=== PATIENT | female | born 1955 | race Caucasian/White ===

== ENCOUNTER 2021-09-14 12:47 | Inpatient (IN) | payer OTHER, MEDICARE ==
[2021-09-14 14:54] VITALS: BMI 27.4
[2021-09-14] MEDS ORDERED: diazePAM 5 MG TABLET PO PRN (15:53)
[2021-09-14] MEDS ORDERED: DICYCLOMINE HCL 10 MG CAPSULE PO PRN (15:55)
[2021-09-14] MEDS ORDERED: BISMUTH SUBSALICYLATE 524 MG/30 ML PO PRN (15:55)
[2021-09-14] MEDS ORDERED: MAGNESIUM HYDROX 2400MG/30ML ORAL SUSPENSION 30 ML CUP PO PRN (15:55)
[2021-09-14] MEDS ORDERED: MAG HYDROX/AL HYDROX/SIMETH 30 ML UNIT-DOSE CUP PO PRN (15:55)
[2021-09-14] MEDS ORDERED: IBUPROFEN 600 MG TABLET (FP) PO PRN (15:55)
[2021-09-14] MEDS ORDERED: METHOCARBAMOL 500 MG TABLET PO PRN (15:55)
[2021-09-14] MEDS ORDERED: LOPERAMIDE HCL 2 MG CAPSULE PO PRN (15:55)
[2021-09-14] MEDS ORDERED: MAGNESIUM CITRATE 300 ML BOTTLE PO PRN (15:55)
[2021-09-14] MEDS ORDERED: ONDANSETRON *ODT* 4 MG TABLET SL PRN (15:55)
[2021-09-14] MEDS ORDERED: IBUPROFEN 400 MG TABLET (FP) PO PRN (15:55)
[2021-09-14] MEDS ORDERED: BENZOCAINE/MENTHOL (CHLORASEPTIC ) LOZENGE MM PRN (15:55)
[2021-09-14] MEDS ORDERED: ACETAMINOPHEN 325 MG TABLET (FP) PO PRN ×2 (15:55)
[2021-09-14] MEDS: hydrOXYzine PAMOATE 25 MG CAPSULE (FP) PO SCH ×3 (18:30→22:35)
[2021-09-14] MEDS: diazePAM 5 MG TABLET PO SCH ×2 (18:30→22:34)
[2021-09-14] MEDS: THIAMINE HCL 100 MG TABLET (FP) PO SCH (22:34)
[2021-09-14] MEDS: ROSUVASTATIN CA 20 MG TABLET PO SCH (22:35)
[2021-09-14] MEDS: MELATONIN 5 MG TABLETS PO SCH (22:35)
[2021-09-14] MEDS: FAMOTIDINE 20 MG TABLET PO SCH (22:35)
[2021-09-15] MEDS: hydrOXYzine PAMOATE 25 MG CAPSULE (FP) PO SCH ×5 (05:40→22:21)
[2021-09-15] MEDS: diazePAM 5 MG TABLET PO SCH ×4 (05:40→22:21)
[2021-09-15] MEDS: VERAPAMIL HCL 240 MG E.R. TABLET PO SCH (10:24)
[2021-09-15] MEDS: CITALOPRAM HYDROBROMIDE 20 MG TABLET PO SCH (10:24)
[2021-09-15] MEDS: PRENATAL VITAMINS W/ FOLIC ACID TABLET (FP) PO SCH (10:24)
[2021-09-15] MEDS: FAMOTIDINE 20 MG TABLET PO SCH ×2 (10:25→22:21)
[2021-09-15 11:20] LABS: EPI CELLS >36 /uL (0-25.1); HYALINE CASTS 5 /uL (0-3.1); PH,URINE 6.5 (5.0-8.0); URINE APPEARANCE CLEAR; URINE BACTERIA 32 /uL (0-1359); URINE BILIRUBIN NEGATIVE (NEGATIVE); URINE COLOR YELLOW; URINE GLUCOSE (UA) NEGATIVE (NEGATIVE); URINE KETONE NEGATIVE (NEGATIVE); URINE LEUK ESTERASE 3+ (NEGATIVE); URINE NITRITE NEGATIVE (NEGATIVE); URINE PROTEIN NEGATIVE (NEGATIVE); URINE RBC 4 /uL (0-23.9); URINE UROBILINOGEN 0.2 mg/dL (0.2-1.0); URINE WBC 130 /uL (0-25.8)
[2021-09-15 11:20] LABS: HEMATOCRIT 37.5 % (32.4-45.2); HEMOGLOBIN 12.4 GM/dL (10.7-15.3); MCH 32.3 pg (25.7-33.7); MEAN CELL VOLUME 97.9 fl (80-96); MEAN PLT VOLUME 7.9 fl (7.5-11.1); PLATELET COUNT 260 10^3/uL (134-434); RBC 3.83 M/mm3 (3.60-5.2); RDW 13.2 % (11.6-15.6); WHITE BLOOD COUNT 7.6 K/mm3 (4.0-10.0)
[2021-09-15 12:19] LABS: CALCIUM 9.4 mg/dL (8.5-10.1)
[2021-09-15 12:20] LABS: ALBUMIN 3.6 g/dl (3.4-5.0); BLOOD UREA NITROGEN 9.2 mg/dL (7-18); CREATININE 0.7 mg/dL (0.55-1.3)
[2021-09-15 12:22] LABS: BILIRUBIN,TOTAL 0.6 mg/dL (0.2-1); TOT PROT 6.2 g/dl (6.4-8.2)
[2021-09-15] MEDS: THIAMINE HCL 100 MG TABLET (FP) PO SCH (22:21)
[2021-09-15] MEDS: ROSUVASTATIN CA 20 MG TABLET PO SCH (22:21)
[2021-09-15] MEDS: MELATONIN 5 MG TABLETS PO SCH (22:21)
[2021-09-16] MEDS: diazePAM 5 MG TABLET PO SCH ×3 (05:26→22:01)
[2021-09-16] MEDS: hydrOXYzine PAMOATE 25 MG CAPSULE (FP) PO SCH ×6 (05:26→22:00)
[2021-09-16] MEDS: FAMOTIDINE 20 MG TABLET PO SCH ×2 (10:18→22:00)
[2021-09-16] MEDS: PRENATAL VITAMINS W/ FOLIC ACID TABLET (FP) PO SCH (10:18)
[2021-09-16] MEDS: VERAPAMIL HCL 240 MG E.R. TABLET PO SCH (10:18)
[2021-09-16] MEDS: CITALOPRAM HYDROBROMIDE 20 MG TABLET PO SCH (10:18)
[2021-09-16 12:58] LABS: EPI CELLS 21 /uL (0-25.1); HYALINE CASTS 5 /uL (0-3.1); URINE APPEARANCE CLOUDY; URINE BACTERIA 19 /uL (0-1359); URINE BILIRUBIN NEGATIVE (NEGATIVE); URINE COLOR YELLOW; URINE GLUCOSE (UA) NEGATIVE (NEGATIVE); URINE KETONE NEGATIVE (NEGATIVE); URINE LEUK ESTERASE TRACE (NEGATIVE); URINE NITRITE NEGATIVE (NEGATIVE); URINE PROTEIN NEGATIVE (NEGATIVE); URINE RBC 9 /uL (0-23.9); URINE UROBILINOGEN 0.2 mg/dL (0.2-1.0); URINE WBC 24 /uL (0-25.8)
[2021-09-16] MEDS: THIAMINE HCL 100 MG TABLET (FP) PO SCH (22:00)
[2021-09-16] MEDS: MELATONIN 5 MG TABLETS PO SCH (22:00)
[2021-09-16] MEDS: ROSUVASTATIN CA 20 MG TABLET PO SCH (22:00)
[2021-09-17] MEDS: diazePAM 5 MG TABLET PO SCH ×2 (05:52→18:10)
[2021-09-17] MEDS: hydrOXYzine PAMOATE 25 MG CAPSULE (FP) PO SCH ×5 (05:52→23:21)
[2021-09-17] MEDS: CITALOPRAM HYDROBROMIDE 20 MG TABLET PO SCH (10:15)
[2021-09-17] MEDS: VERAPAMIL HCL 240 MG E.R. TABLET PO SCH (10:15)
[2021-09-17] MEDS: FAMOTIDINE 20 MG TABLET PO SCH ×2 (10:16→22:21)
[2021-09-17] MEDS: PRENATAL VITAMINS W/ FOLIC ACID TABLET (FP) PO SCH (10:16)
[2021-09-17] MEDS: THIAMINE HCL 100 MG TABLET (FP) PO SCH (22:28)
[2021-09-17] MEDS: ROSUVASTATIN CA 20 MG TABLET PO SCH (22:29)
[2021-09-17] MEDS: MELATONIN 5 MG TABLETS PO SCH (22:29)
[2021-09-18] MEDS: hydrOXYzine PAMOATE 25 MG CAPSULE (FP) PO SCH ×2 (05:21→10:01)
[2021-09-18] MEDS ORDERED: diazePAM 5 MG TABLET PO ONE (06:00)
[2021-09-18] MEDS: CITALOPRAM HYDROBROMIDE 20 MG TABLET PO SCH (09:59)
[2021-09-18] MEDS: VERAPAMIL HCL 240 MG E.R. TABLET PO SCH (10:00)
[2021-09-18] MEDS: PRENATAL VITAMINS W/ FOLIC ACID TABLET (FP) PO SCH (10:00)
[2021-09-18] MEDS: FAMOTIDINE 20 MG TABLET PO SCH (10:00)
[2021-09-18 10:02] VITALS: BP 108/68; PULSE 85; TEMP 97.3
== END 2021-09-18 10:55 | disposition home or self-care (01) | DRG 897 ==
LOC: YASAS 12:47 → SUATTDRO 12:47 → Y6N 16:53
PROVIDERS: ADMIT Allergy & Immunology; ATTEND Surgery
PROC: HZ2ZZZZ Detoxification Services for Substance Abuse Treatment (ICD-10-PCS; principal; 2021-09-14)
DX: F10.230 Alcohol dependence with withdrawal, uncomplicated (principal); F12.20 Cannabis dependence, uncomplicated; F17.210 Nicotine dependence, cigarettes, uncomplicated; F90.9 Attention-deficit hyperactivity disorder, unspecified type; F43.10 Post-traumatic stress disorder, unspecified; M17.12 Unilateral primary osteoarthritis, left knee; Z86.69 Personal history of other diseases of the nervous system and sense organs
CPT/HCPCS: 36415; 80053; 81003; 85027; 86780; 93005; 93010; C9803-CS; U0003; U0005